=== PATIENT | male | born 1990 | race Hispanic/Latino ===

== ENCOUNTER 2021-12-27 22:12 | Emergency (ER) | payer OTHER ==
[~2021-12-27] VITALS: Ht 180.3 cm; Wt 83.5 kg
[2021-12-27 22:16] VITALS: BP 116/78
[2021-12-27 22:39] LABS: APPEARANCE,URINE CLEAR (CLEAR); BILIRUBIN,URINE NEGATIVE (NEGATIVE); COLOR,URINE YELLOW (YELLOW); GLUCOSE, URINE (UA) NEGATIVE (NEGATIVE); KETONES,URINE NEGATIVE (NEGATIVE); LEUKOCYTE ESTERASE ,URINE NEGATIVE (NEGATIVE); NITRATE,URINE NEGATIVE (NEGATIVE); OCCULT BLOOD,URINE NEGATIVE (NEGATIVE); PROTEIN,URINE NEGATIVE (NEGATIVE)
[2021-12-27] MEDS ORDERED: ONDA4TAB10 PO (23:16)
[2021-12-27] MEDS ORDERED: IBUP-2070 PO (23:16)
[2021-12-27] MEDS ORDERED: D-ME118S47 PO (23:16)
== END 2021-12-27 23:31 | disposition home or self-care (01) ==
LOC: EDH 22:12
DX: U07.1 COVID-19 (principal)
CPT/HCPCS: 99283; 87635; 87880; 87804 ×2; 81003; C9803

== ENCOUNTER 2023-08-04 03:05 | Emergency (ER) | payer OTHER ==
[~2023-08-04] VITALS: Ht 180.3 cm; Wt 86.2 kg
[~2023-08-04 03:05] MED LIST: D-ME118S47 PO; IBUP-2070 PO; ONDA4TAB10 PO
[2023-08-04 03:11] VITALS: BP 133/58; PULSE 74; RESP 12; O2SAT 97
[2023-08-04 03:26] LABS: RAPID GROUP A STREP negative (NEGATIVE)
[2023-08-04 03:35] LABS: INFLUENZA TYPE A Negative For Type A (NEGATIVE); INFLUENZA TYPE B Negative For Type B (NEGATIVE)
[2023-08-04 03:46] LABS: SARS-CoV-2, RNA, NAAT NEGATIVE SARS CoV-2 (NEGATIVE)
[2023-08-04] MEDS: KETOROLAC 30MG VIAL (30MG/ML) IM ONE (03:51)
== END 2023-08-04 03:58 | disposition home or self-care (01) ==
LOC: EDH 03:05
DX: J02.8 Acute pharyngitis due to other specified organisms (principal); B97.89 Other viral agents as the cause of diseases classified elsewhere; Z79.899 Other long term (current) drug therapy; Z20.822 Contact with and (suspected) exposure to COVID-19
CPT/HCPCS: 99283; 87635; 87880; 87804 ×2; 96372; J1885